=== PATIENT | male | born 1945 | race Caucasian/White ===

== ENCOUNTER 2022-07-16 07:58 | Day surgery (SDC) | payer MEDICARE, SELFPAY ==
[2022-07-16 08:15] VITALS: BP 147/96; PULSE 79; RESP 16; TEMP 36.5; O2SAT 98
[2022-07-16] MEDS: Tropicam./Phenyleph. (1/2.5%) 5 ML BTL OS ×3 (08:23→08:33)
--- NOTE | 2022-07-16 08:47 | W.ANESPRE ---
General Info Date of Service Date Performed: 07/16/22 Height: 5 ft 6 in Weight: 92.7 kg Body Mass Index (BMI): 33.0 Surgical Procedure: Operation Date: 07/16/22 10:40 Proposed Procedure Side Surgeon p Cataract Extraction with IOL Implant Left Filibreto Gonsales MD Meds Allergies and Home Medications Allergies Allergy/AdvReac Type Severity Reaction Status Date / Time colchicine Allergy Other (See Verified 07/16/22 08:11 Comment) simvastatin Allergy Other (See Verified 07/16/22 08:11 Comment) Home Medication Medication Instructions Recorded atenolol 50 mg-chlorthalidone 25 1 tab PO DAILY 07/14/22 mg tablet atorvastatin 20 mg tablet 20 mg PO DAILY 07/14/22 indomethacin 50 mg capsule 50 mg PO TID 07/14/22 mesalamine 1.2 gram tablet,delayed 3.6 g PO DAILY 07/14/22 release (Lialda) multivitamin 1 tab PO DAILY 07/14/22 Current Visit Medications: Current Medications Generic Name Dose Route Start Last Admin Trade Name Freq PRN Reason Stop Dose Admin Acetaminophen 1,000 mg 07/16/22 06:00 Acetaminophen 500 Mg Tab PO Q4H PRN PRN Miscellaneous Medication 0 ml 07/16/22 06:00 Prednisolone 1%, Moxifloxacin 0.5%, Nepafenac 0.1% 5ml Btl OS DIRECTED ESTEPHANIA Miscellaneous Medication 0 ml 07/16/22 06:00 07/16/22 08:33 Tropicam./Phenyleph. (1/2.5%) 5 Ml Btl OS 1 drp DIRECTED ESTEPHANIA Administration Tetracaine HCl 0 ml 07/16/22 06:00 Tetracaine 0.5% 4 Ml Btl OS DIRECTED ESTEPHANIA PFSH Active Problems Active Problems: Problem Status Onset Code Posterior subcapsular age-related cataract of left eye H25.042 Nuclear sclerotic cataract of left eye H25.12 Medical History Medical History Gout HLD (hyperlipidemia) Hx of Crohn's disease Hypertension, essential Surgical History Surgical History H/O colonoscopy Tobacco Smoking/Tobacco Use Status: Never Alcohol Alcohol Intake: never Substance Use Substance use: Never Substance use type: does not use Vital Signs and Lab Results Vital Signs Most Recent Vital Signs in EMR: Most Recent Vital Signs Temp Pulse Resp BP Pulse Ox 36.5 C 79 16 147/96 H 98 07/16/22 08:15 07/16/22 08:15 07/16/22 08:15 07/16/22 08:15 07/16/22 08:15 Lab Results Blood Type / Crossmatch: No Data to Display Complete Blood Count: No Data to Display Complete Metabolic Panel: No Data to Display Liver Function Panel: No Data to Display Coagulation Panel: No Data to Display Cardiac Panel: No Data to Display Arterial Blood Gas: No Data to Display Venous Blood Gas: No Data to Display Pancreas Panel: No Data to Display Thyroid Panel: No Data to Display Infectious Disease: No Data to Display Blood Cultures: No Data to Display Toxicology Panel: No Data to Display Anesthesia Assessment and Plan Anesthesia History Personal History: No History of Anesthesia Complications Family History: No Family History of Anesthesia Complications Exercise Tolerance Exercise Tolerance: Metabolic Equivalents>4 Pertinent Negatives Pertinent Negatives: No Symptoms of GERD Cardiac & Pulmonary Exam Cardiac Exam: Normal S1/S2 Heart Sounds Pulmonary Exam: Clear Bilateral Breath Sounds Implantable Cardiac Device Does patient have a Pacemaker or an ICD?: No Airway Exam Known Difficult Airway: No Mallampati Class: 3 Mouth Opening: Normal (> 3cm) Thyromental Distance: Greater than 3 cm Neck Range of Motion: Full ROM Neck Circumference: Normal Teeth Condition: Removable Dentures/Plates Upper ASA Classification ASA Score: ASA 2 Emergency Case?: No NPO Status NPO Status: NPO Clears >2 hours, Solids >8 hours Anesthesia Plan Resuscitation Status: Full Code Anesthesia Technique: MAC Anesthesia Airway Planned: Natural Airway Monitors Used: Standard Monitors
[2022-07-16 08:50] VITALS: BMI 33.0
[2022-07-16] MEDS: Tetracaine 0.5% 4 ML BTL OS (09:47)
[2022-07-16] MEDS: Povidone-Iodine Ophth 30 ML BTL (09:48)
[2022-07-16] MEDS: Balanced Salt Soln.-PLUS 500 ML BAG (09:53)
[2022-07-16] MEDS: Lidocaine 2% Jelly 6 ML SYR (09:55)
[2022-07-16] MEDS: Duovisc Viscoelastic System EACH 1 EACH (09:55)
[2022-07-16] MEDS: Trypan Blue 0.06% 0.5 ML SYR (10:00)
[2022-07-16 10:21] VITALS: BP 120/94; PULSE 100; RESP 16; TEMP 36.3; O2SAT 96
--- NOTE | 2022-07-16 10:23 | ROE_ITS ---
Date of service: 07/16/22 Time of Service: 10:24 Operative Note Operative Note DATE OF PROCEDURE: 07/16/22 PRE-OP DIAGNOSIS: Advanced nuclear/posterior subcapsular cataract, left eye Absent red reflex, left eye POST-OP DIAGNOSIS: same PROCEDURE: Cataract extraction using phacoemulsification with intraocular lens implant, left eye Capsular staining with VisionBlue, left eye SURGEON: Filiberto Gonsales ANESTHESIA TYPE: Local By Surgeon and MAC Refer to Anesthesia Record PATHOLOGY: none sent COMPLICATIONS: None Patient was transported to: same day Patient's condition: stable Implants: Medardo Clareon [id number] Indications: Progressive decreased vision due to cataract, left eye Procedure Description: CATARACT SURGERY OPERATIVE REPORT PREOPERATIVE DIAGNOSIS: Advanced nuclear/posterior subcapsular cataract, left eye Absent red reflex, left eye secondary to cataract POSTOPERATIVE DIAGNOSIS: Same OPERATION: Cataract extraction using phacoemulsification with posterior chamber intraocular lens implant, left eye. Capsular staining with VisionBlue, left eye IOL: IOL Lieutenant General/Model: Medardo Clareon [id number] IOL Power: + 28.5 diopters IOL Serial Number: [id number] Optic Diameter: 6.0mm Haptic/Overall Diameter: 13.0mm PHACO INFO: Medardo Centurion Vision System with OZil and Active Fluidics Cumulative Dispersed Energy (CDE): 32.50 seconds SURGEON: Filiberto Gonsales MD, YSABEL ANESTHESIA: Monitored Anesthesia Care (MAC), with local sub-tenon's anesthetic infiltration COMPLICATIONS: None SPECIMENS: None INDICATIONS FOR PROCEDURE: The patient is a 77-year-old gentleman with history of diminished visual acuity in his left eye secondary to development of advanced nuclear/posterior subcapsular cataract with visual acuity of counting fingers. 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 The option of cataract surgery was offered to the patient and he felt he was symptomatic and with that he wished to proceed. He understand that postoperative visual acuity will be limited by the presence of his pre-existing amblyopia. PROCEDURE: The correct surgical eye was identified and marked as the left eye and the pupil was dilated in the preoperative area using mydriatics and cycl oplegics. The dilated pupil size was 7.0 mm. 2mg). The patient elected to proceed without oral sedation. The patient was brought to the operating room where cardiopulmonary monitoring was instituted and surgical time-out was performed, confirming the correct operative eye and IOL power. Topical anesthesia was administered and ophthalmic povidone-iodine 5% was instilled into the conjunctival fornices. Lidocaine gel was applied to the cornea and the kalpana-ocular area was prepped with Betadine 10% solution and draped in the usual sterile fashion for intraocular surgery, including an aperture drape. A Tegaderm transparent film dressing was cut in half and used to cover the lashes and lid margins. Care was taken to sequester the lashes and lid margins under the Tegaderm dressing. A lid speculum was placed between the lids of the operative eye and the Medardo Lux[employer] operating microscope was maneuvered into position. Radha scissors were then used to make a conjunctival buttonhole approximately 6mm posterior to the limbus in the inferonasal quadrant. Blunt dissection was carried out to expose bare sclera, and a blunt-tipped sub-tenon?s anesthesia cannula was introduced and passed posteriorly along the globe where non- preserved plain lidocaine was injected into posterior sub-Tenon?s space. A sideport knife was used to make a paracentesis port superior/superiortemporally. Intraocular phenylephrine/lidocaine was injected into the anterior chamber. Air was then injected into the anterior chamber, followed by VisionBlue, which was painted over the anterior lens capsule and then irrigated out with phenylephrine/lidocaine. The anterior chamber was then filled with viscoelastic. Viscoat was used to protect the corneal endothelium. A keratome knife was used construct a two-plane near-clear corneal tunnel extending 2.0mm into clear cornea in the temporal position. . A flap was raised on the anterior capsule and capsulorhexis forceps were used to complete a continuous curvilinear capsulorhexis of 5.0 mm. Balanced salt solution was then used to perform cortical cleaving hydrodissection and nuclear hydrodelineation until the lens could be freely rotated within the capsular bag. The lens nucleus was then disassembled and removed within the capsular bag and iris plane using phacoemulsification. Residual cortical material was removed using the 45-degree angled silicone I/A tip with 0.3mm port. The posterior capsule was carefully polished to remove as much residual lens epithelial cells as safely possible. The capsular bag was then inflated and the anterior chamber deepened with viscoelastic. The lens implant described above was inserted into the capsular bag using the Medardo Autonome Injector. A Kuglen hook was used to dial the IOL into position. Residual viscoelastic was then removed first from posterior to the IOL, then from the anterior chamber using the I/A handpiece. The lens implant was noted to center nicely within the capsular bag. The incisions were stromally hydrated, and the anterior chamber was reformed using BSS. Then 0.5cc of moxifloxacin 1.0mg/ml were injected into the capsular bag and anterior chamber. The incisions were checked with a Weck spear and found to be secure. Several drops of ophthalmic povidone-iodine 5% were then applied to the eye followed by two drops of Imprimis combination prednisolone/moxifloxacin/nepafenac solution. The drapes were removed and a clear plastic protective eye shield was placed over the eye. The patient was then returned to Same Day Surgery in stable condition.
--- NOTE | 2022-07-16 10:23 | W.PM.DSUDISC ---
Discharge Plan Disposition Patient Disposition: HOME Condition: Good Discharge Details Attending Provider: Filiberto Gonsales Primary Care Provider: Stephen Morales Home Meds and New Rx's Prescriptions: No Action multivitamin Tablet 1 tab PO DAILY atorvastatin 20 mg Tablet 20 mg PO DAILY atenolol-chlorthalidone 50-25 mg Tablet 1 tab PO DAILY indomethacin 50 mg Capsule 50 mg PO TID Rx Instructions: administer with food or milk mesalamine [Lialda] 1.2 gram Tablet,Delayed Release (Dr/Ec) 3.6 g PO DAILY Discharge Instructions Stand Alone Forms: Post-op Topical Cataract, Tamela Wiggins ([facility]U) Discharge Orders Discharge Orders: Discharge Order (Routine); Ordered 07/16/22 Ordered By: Filiberto Gonsales DS: Diagnosis Discharge Diagnosis (1) Posterior subcapsular age-related cataract of left eye: Status: Resolved (2) Nuclear sclerotic cataract of left eye: Status: Resolved
--- NOTE | 2022-07-16 10:45 | W.ANESPOSTOP ---
Postoperative Evaluation Date, Time and Location Date Performed: 07/16/22 Time Performed: 10:30 Patient Location: Day Surgery Unit Vital Signs Most Recent Imported Vital Signs: Most Recent Vital Signs Temp Pulse Resp BP Pulse Ox 36.5 C 79 16 147/96 H 98 07/16/22 08:15 07/16/22 08:15 07/16/22 08:15 07/16/22 08:15 07/16/22 08:15 Assessment Mental Status: Awake (Alert & Oriented to Patient Baseline) Airway and Respiratory Function: Patent airway with normal (patient baseline) respiratory exam Cardiovascular Function: Hemodynamically Stable Hydration Status: Adequately Hydrated Nausea & Vomiting: No Nausea or Vomiting Pain: Pt. Denies Any Pain Peripheral Nerve Block: Patient did not receive a nerve block
== END 2022-07-16 10:43 | disposition home or self-care (01) ==
LOC: SUR 07:59
PROVIDERS: PCP Family Medicine; Visit Provider Ophthalmology
PROC: (CPT 66982; principal; 2022-07-16 10:30)
DX: H25.042 Posterior subcapsular polar age-related cataract, left eye (principal); H26.8 Other specified cataract; I10 Essential (primary) hypertension
CPT/HCPCS: 66982; V2632

== ENCOUNTER 2022-07-30 07:59 | Day surgery (SDC) | payer MEDICARE, SELFPAY ==
[2022-07-30 08:22] VITALS: BP 142/83; PULSE 91; RESP 16; TEMP 36.5; O2SAT 97
[2022-07-30] MEDS: Tropicam./Phenyleph. (1/2.5%) 5 ML BTL OD ×3 (08:34→08:46)
[2022-07-30 09:03] VITALS: BMI 33.2
--- NOTE | 2022-07-30 09:03 | W.ANESPRE ---
General Info Date of Service Date Performed: 07/30/22 Height: 5 ft 6 in Weight: 93.3 kg Body Mass Index (BMI): 33.2 Surgical Procedure: Operation Date: 07/30/22 10:40 Proposed Procedure Side Surgeon p Cataract Extraction with IOL Implant Right Filiberto Gonsales MD Meds Allergies and Home Medications Allergies Allergy/AdvReac Type Severity Reaction Status Date / Time colchicine Allergy Other (See Verified 07/30/22 08:20 Comment) simvastatin Allergy Other (See Verified 07/30/22 08:20 Comment) Home Medication Medication Instructions Recorded atenolol 50 mg-chlorthalidone 25 1 tab PO DAILY 07/14/22 mg tablet atorvastatin 20 mg tablet 20 mg PO DAILY 07/14/22 indomethacin 50 mg capsule 50 mg PO TID 07/14/22 mesalamine 1.2 gram tablet,delayed 3.6 g PO DAILY 07/14/22 release (Lialda) multivitamin 1 tab PO DAILY 07/14/22 Current Visit Medications: Current Medications Generic Name Dose Route Start Last Admin Trade Name Freq PRN Reason Stop Dose Admin Acetaminophen 1,000 mg 07/30/22 06:00 Acetaminophen 500 Mg Tab PO Q4H PRN PRN Miscellaneous Medication 0 ml 07/30/22 06:00 Prednisolone 1%, Moxifloxacin 0.5%, Nepafenac 0.1% 5ml Btl OD DIRECTED ESTEPHANIA Miscellaneous Medication 0 ml 07/30/22 06:00 07/30/22 08:46 Tropicam./Phenyleph. (1/2.5%) 5 Ml Btl OD 1 drp DIRECTED ESTEPHANIA Administration Tetracaine HCl 0 ml 07/30/22 06:00 Tetracaine 0.5% 4 Ml Btl OD DIRECTED ESTEPHANIA PFSH Active Problems Active Problems: Problem Status Onset Code Posterior subcapsular age-related cataract of left eye H25.042 Nuclear sclerotic cataract of left eye H25.12 Medical History Medical History Gout HLD (hyperlipidemia) Hx of Crohn's disease Hypertension, essential Surgical History Surgical History H/O colonoscopy Tobacco Smoking/Tobacco Use Status: Never Alcohol Alcohol Intake: never Substance Use Substance use: Never Substance use type: does not use Vital Signs and Lab Results Vital Signs Most Recent Vital Signs in EMR: Most Recent Vital Signs Temp Pulse Resp BP Pulse Ox 36.5 C 91 H 16 142/83 H 97 07/30/22 08:22 07/30/22 08:22 07/30/22 08:22 07/30/22 08:22 07/30/22 08:22 Lab Results Blood Type / Crossmatch: No Data to Display Complete Blood Count: No Data to Display Complete Metabolic Panel: No Data to Display Liver Function Panel: No Data to Display Coagulation Panel: No Data to Display Cardiac Panel: No Data to Display Arterial Blood Gas: No Data to Display Venous Blood Gas: No Data to Display Pancreas Panel: No Data to Display Thyroid Panel: No Data to Display Infectious Disease: No Data to Display Blood Cultures: No Data to Display Toxicology Panel: No Data to Display Anesthesia Assessment and Plan Anesthesia History Personal History: No History of Anesthesia Complications Family History: No Family History of Anesthesia Complications Exercise Tolerance Exercise Tolerance: Metabolic Equivalents>4 Cardiac & Pulmonary Exam Cardiac Exam: Normal S1/S2 Heart Sounds Pulmonary Exam: Clear Bilateral Breath Sounds Implantable Cardiac Device Does patient have a Pacemaker or an ICD?: No Airway Exam Known Difficult Airway: No Mallampati Class: 3 Mouth Opening: Normal (> 3cm) Thyromental Distance: Greater than 3 cm Neck Range of Motion: Full ROM Neck Circumference: Normal Teeth Condition: Removable Dentures/Plates Upper ASA Classification ASA Score: ASA 2 Emergency Case?: No NPO Status NPO Status: NPO Clears >2 hours, Solids >8 hours Anesthesia Plan Resuscitation Status: Full Code Anesthesia Technique: MAC Anesthesia Airway Planned: Natural Airway Monitors Used: Standard Monitors
[2022-07-30] MEDS: Tetracaine 0.5% 4 ML BTL OD (09:51)
[2022-07-30] MEDS: Duovisc Viscoelastic System EACH 1 EACH (09:52)
[2022-07-30] MEDS: Balanced Salt Soln.-PLUS 500 ML BAG (09:52)
[2022-07-30] MEDS: Lidocaine 2% Jelly 6 ML SYR (09:53)
[2022-07-30] MEDS: Povidone-Iodine Ophth 30 ML BTL (09:54)
[2022-07-30] MEDS: Trypan Blue 0.06% 0.5 ML SYR (09:55)
[2022-07-30 10:12] VITALS: BP 145/94; PULSE 97; RESP 18; TEMP 36.3; O2SAT 97
--- NOTE | 2022-07-30 10:13 | W.PM.DSUDISC ---
Date of service: 07/30/22 Time of Service: 10:13 Discharge Plan Disposition Patient Disposition: HOME Condition: Good Discharge Details Attending Provider: Filiberto Gonsales Primary Care Provider: Stephen Morales Home Meds and New Rx's Prescriptions: No Action multivitamin Tablet 1 tab PO DAILY atorvastatin 20 mg Tablet 20 mg PO DAILY atenolol-chlorthalidone 50-25 mg Tablet 1 tab PO DAILY indomethacin 50 mg Capsule 50 mg PO TID Rx Instructions: administer with food or milk mesalamine [Lialda] 1.2 gram Tablet,Delayed Release (Dr/Ec) 3.6 g PO DAILY Discharge Instructions Stand Alone Forms: Post-op Topical Cataract, Tamela Wiggins ([facility]) Discharge Orders Discharge Orders: Discharge Order (Routine); Ordered 07/30/22 Ordered By: Filiberto Gonsales DS: Diagnosis Discharge Diagnosis (1) Cortical cataract of right eye: Status: Resolved (2) Nuclear sclerotic cataract of right eye: Status: Resolved (3) Posterior subcapsular age-related cataract, right eye: Status: Resolved
--- NOTE | 2022-07-30 10:14 | ROE_ITS ---
Date of service: 07/30/22 Time of Service: 10:14 Operative Note Operative Note DATE OF PROCEDURE: 07/30/22 PRE-OP DIAGNOSIS: Nuclear/cortical/posterior subcapsular cataract, right eye Poor red reflex secondary to cataract, right eye POST-OP DIAGNOSIS: same PROCEDURE: Cataract extraction using phacoemulsification with intraocular lens implant, right eye Capsular staining with VisionBlue SURGEON: Filiberto Gonsales ANESTHESIA TYPE: Local By Surgeon and MAC Refer to Anesthesia Record ESTIMATED BLOOD LOSS: 0 PATHOLOGY: none sent COMPLICATIONS: None Patient was transported to: same day Patient's condition: stable Implants: Medardo Clareon [id number] Indications: Progressive decreased vision due to cataract, right eye Procedure Description: CATARACT SURGERY OPERATIVE REPORT PREOPERATIVE DIAGNOSIS: Nuclear/cortical/posterior subcapsular cataract, right eye Poor red reflex secondary to cataract, right eye POSTOPERATIVE DIAGNOSIS: Same OPERATION: Cataract extraction using phacoemulsification with posterior chamber intraocular lens implant, right eye. IOL: IOL Professional Soccer Player/Model: Medardo Clareon [id number] IOL Power: + 26.0 diopters IOL Serial Number: [id number] Optic Diameter: 6.0mm Haptic/Overall Diameter: 13.0mm PHACO INFO: Medardo [employer] Vision System with OZil and Active Fluidics Cumulative Dispersed Energy (CDE): 6.72 seconds SURGEON: Filiberto Gonsales MD, YSABEL ANESTHESIA: Monitored Anesthesia Care (MAC), with local sub-tenon's anesthetic infiltration COMPLICATIONS: None SPECIMENS: None INDICATIONS FOR PROCEDURE: Patient is a 77-year-old gentleman with history of diminished visual acuity in both eyes secondary to the development of significant bilateral cataracts. He has already undergone cataract surgery in his left eye and is doing well postoperatively. He now presents for cataract surgery in the right eye. PROCEDURE: The correct surgical eye was identified and marked as the right eye and the pupil was dilated in the preoperative area using mydriatics and cycloplegics. The dilated pupil size was 7.0 mm.. The patient elected to proceed without oral sedation. The patient was brought to the operating room where cardiopulmonary monitoring was instituted and surgical time-out was performed, confirming the correct operative eye and IOL power. Topical anesthesia was administered and ophthalmic povidone-iodine 5% was instilled into the conjunctival fornices. Lidocaine gel was applied to the cornea and the kalpana-ocular area was prepped with Betadine 10% solution and draped in the usual sterile fashion for intraocular surgery, including an aperture drape. A Tegaderm transparent film dressing was cut in half and used to cover the lashes and lid margins. Care was taken to sequester the lashes and lid margins under the Tegaderm dressing. A lid speculum was placed between the lids of the operative eye and the Jagjit-Riana operating microscope was maneuvered into position. Radha scissors were then used to make a conjunctival buttonhole approximately 6mm posterior to the limbus in the inferonasal quadrant. Blunt dissection was carried out to expose bare sclera, and a blunt-tipped sub-tenon?s anesthesia cannula was introduced and passed posteriorly along the globe where non- preserved plain lidocaine was injected into posterior sub-Tenon?s space. A sideport knife was used to make a paracentesis port inferiortemporally. VisionBlue was then injected into the anterior chamber and left to sit for 8 to 10 seconds. Intraocular phenylephrine/lidocaine was injected into the anterior chamber. The anterior chamber was then filled with viscoelastic. A keratome knife was used to construct a two--plane near-clear corneal tunnel extending 2.0mm into clear cornea in the superiortemporal position.. A flap was raised on the anterior capsule and capsulorhexis forceps were used to complete a continuous curvilinear capsulorhexis of 5.0 mm. Balanced salt solution was then used to perform cortical cleaving hydrodissection and nuclear hydrodelineation until the lens could be freely rotated within the capsular bag. The lens nucleus was then disassembled and removed within the capsular bag and iris plane using phacoemulsification. Residual cortical material was removed using the I/A handpiece. The posterior capsule was carefully polished to remove as much residual lens epithelial cells as safely possible. The capsular bag was then inflated and the anterior chamber deepened with viscoelastic. The lens implant described above was inserted into the capsular bag using the Medardo Autonome Injector. A Kuglen hook was used to dial the IOL into position. Residual viscoelastic was then removed first from posterior to the IOL, then from the anterior chamber using the I/A handpiece. The lens implant was noted to center nicely within the capsular bag. The incisions were stromally hydrated, and the anterior chamber was reformed using BSS. Then 0.5cc of moxifloxacin 1.0mg/ml were injected into the capsular bag and anterior chamber. The incisi ons were checked with a Weck spear and found to be secure. Several drops of ophthalmic povidone-iodine 5% were then applied to the eye followed by two drops of Imprimis combination prednisolone/moxifloxacin/nepafenac solution. The drapes were removed and a clear plastic protective eye shield was placed over the eye. The patient was then returned to Same Day Surgery in stable condition.
--- NOTE | 2022-07-30 10:26 | W.ANESPOSTOP ---
Postoperative Evaluation Date, Time and Location Date Performed: 07/30/22 Time Performed: 10:26 Patient Location: Day Surgery Unit Vital Signs Most Recent Imported Vital Signs: Most Recent Vital Signs Temp Pulse Resp BP Pulse Ox 36.3 C L 97 H 18 145/94 H 97 07/30/22 10:12 07/30/22 10:12 07/30/22 10:12 07/30/22 10:12 07/30/22 10:12 Pain Score Most Recent Pain Score: Most Recent Pain Score Pain Level 0 07/30/22 10:12 Assessment Mental Status: Awake (Alert & Oriented to Patient Baseline) Airway and Respiratory Function: Patent airway with normal (patient baseline) respiratory exam Cardiovascular Function: Hemodynamically Stable Hydration Status: Adequately Hydrated Nausea & Vomiting: No Nausea or Vomiting Pain: Pt. Denies Any Pain Peripheral Nerve Block: Patient did not receive a nerve block
== END 2022-07-30 10:38 | disposition home or self-care (01) ==
LOC: SUR 07:59
PROVIDERS: PCP Family Medicine; Visit Provider Ophthalmology
PROC: (CPT 66982; principal; 2022-07-30 10:30)
DX: H25.041 Posterior subcapsular polar age-related cataract, right eye (principal); I10 Essential (primary) hypertension; E78.5 Hyperlipidemia, unspecified; H26.8 Other specified cataract
CPT/HCPCS: 66982; V2632